=== PATIENT | female | born 1995 | race Caucasian/White ===

== ENCOUNTER 2019-06-28 00:25 | Emergency (ER) | payer BC, MEDICARE, MEDICAID ==
[2019-06-28] MEDS ORDERED: Ondansetron 4 MG Tab.DIS PO ONE (00:26)
[2019-06-28] MEDS ORDERED: Sodium Chloride 0.9% 1,000 ML IV ONE (00:59)
[2019-06-28 01:10] LABS: ANION GAP 12.6; CHLORIDE,CL 108 mmol/L (101-111); SODIUM,NA 135 mmol/L (135-145)
[2019-06-28] MEDS ORDERED: Ondansetron 4 MG/2 ML SDV IV ONE (01:50)
[2019-06-28] MEDS ORDERED: Acetaminophen 325 MG Tab PO ONE (02:25)
--- NOTE | 2019-06-28 02:27 | EDM.PDOC ---
ED HPI GENERAL MEDICAL PROBLEM - General Chief Complaint: Fever Stated Complaint: FEVER Time Seen by Provider: 06/28/19 00:50 Source of Information: Reports: Patient History Limitations: Reports: No Limitations - History of Present Illness INITIAL COMMENTS - FREE TEXT/NARRATIVE: C/O fever x 1.5 days, sore throat congestion. Hx renal transplant 2 months ago. Emesis 2300 x1. No urinary c/o. Tired. Generalized aches. Generalized Pain Score (Numeric/FACES): 4 - Related Data Allergies Allergy/AdvReac Type Severity Reaction Status Date / Time sulfamethoxazole Allergy Unknown Airway Verified 06/28/19 00:47 [From Bactrim] Tightness trimethoprim [From Bactrim] Allergy Unknown Airway Verified 06/28/19 00:47 Tightness Home Meds: Home Meds Acetaminophen [Tylenol] 325 mg PO Q6H PRN 06/28/19 [History] Albuterol Sulfate [Albuterol Sulfate Hfa] 2 puff INH DAILY PRN 06/28/19 [History ] Aspirin [Ecotrin EC] 81 mg PO DAILY 06/28/19 [History] Carvedilol [Coreg] 3.125 mg PO BID 06/28/19 [History] Diclofenac Sodium [Voltaren 1%] 1 applic TP QID 06/28/19 [History] Hydroxychloroquine Sulfate [Plaquenil] 200 mg PO DAILY 06/28/19 [History] Levothyroxine 150 mcg PO ACBREAKFAST 06/28/19 [History] Mycophenolate Sodium [Mycophenolic Acid] 180 mg PO DAILY 06/28/19 [History] Pantoprazole Sodium [Protonix] 40 mg PO DAILY 06/28/19 [History] Pentamidine Isethionate [Nebupent] 50 mg IH ASDIRECTED 06/28/19 [History] Sertraline [Zoloft] 100 mg PO DAILY 06/28/19 [History] Tacrolimus [Envarsus Xr] 1 mg PO DAILY 06/28/19 [History] Tacrolimus [Envarsus Xr] 4 mg PO DAILY 06/28/19 [History] prednisoLONE [Millipred] 5 mg PO DAILY 06/28/19 [History] valGANciclovir [Valcyte] 450 mg PO DAILY 06/28/19 [History] Past Medical History Other Genitourinary History: Right Renal Transplant March 2019 Endocrine/Metabolic History: Reports: Hypothyroidism Immunologic History: Reports: SLE Social & Family History - Family History Family Medical History: Noncontributory - Tobacco Use Smoking Status *Q: Never Smoker Second Hand Smoke Exposure: No - Caffeine Use Caffeine Use: Reports: Soda - Recreational Drug Use Recreational Drug Use: Yes Drug Use in Last 12 Months: Yes Recreational Drug Type: Reports: Marijuana/Hashish Recreational Drug Use Frequency: Not Used In Over 4 Months ED ROS ENT - Review of Systems Review Of Systems: Comprehensive ROS is negative, except as noted in HPI. ED EXAM, ENT - Physical Exam Exam: See Below Exam Limited By: No Limitations General Appearance: Alert, No Apparent Distress Eye Exam: Bilateral Eye: EOMI Ears: Normal External Exam, Normal TMs, TM Obscured by Cerumen Nose: Normal Inspection Mouth/Throat: Normal Inspection Head: Atraumatic, Normocephalic Neck: Normal Inspection Respiratory/Chest: No Respiratory Distress, Lungs Clear, Normal Breath Sounds, Other (rare dry cough) Cardiovascular: Normal Peripheral Pulses GI/Abdominal: Normal Bowel Sounds, Soft Extremities: Normal Inspection, Normal Range of Motion Neurological: Alert, Oriented, Normal Cognition Psychiatric: Normal Affect Skin: Warm, Dry, Intact, No Rash, Pallor Course - Vital Signs Last Recorded V/S: Last Vital Signs Temp 100.5 F 06/28/19 02:23 Pulse 95 06/28/19 01:59 Resp 18 06/28/19 01:59 BP 133/78 06/28/19 01:59 Pulse Ox 100 06/28/19 01:59 - Orders/Labs/Meds Orders: Active Orders 24 hr Category Date Time Status CULTURE BLOOD [BC] Stat Lab 06/28/19 00:40 Received CULTURE STREP A CONFIRMATION [RM] Stat Lab 06/28/19 00:37 Results STREP SCRN A RAPID W CULT CONF [RM] Stat Lab 06/28/19 00:37 Results Sodium Chloride 0.9% [Normal Saline] 1,000 ml Med 06/28/19 00:59 Active IV .BOLUS Medication Orders Sodium Chloride (Normal Saline) 1,000 mls @ 500 mls/hr IV .BOLUS ONE Stop: 06/28/19 02:58 Last Admin: 06/28/19 01:08 Dose: 500 mls/hr Labs: Laboratory Tests 12/02/19 12/02/19 12/02/19 Range/Units 00:37 00:37 00:40 WBC 3.1 L (5.0-10.0) 10^3/uL RBC 4.05 L (4.2-5.4) 10^6/uL Hgb 12.5 (12.0-16.0) g/dL Hct 37.6 (37.0-47.0) % MCV 92.8 (80-100) fL MCH 30.9 (27.0-34.0) pg MCHC 33.2 (33.0-35.0) g/dL Plt Count 211 (150-450) 10^3/uL Neut % (Auto) 90.5 H (42.2-75.2) % Lymph % (Auto) 2.6 L (20.5-50.1) % Dale % (Auto) 4.3 (2-8) % Eos % (Auto) 1.0 (1.0-3.0) % Baso % (Auto) 1.6 H (0.0-1.0) % Add Manual Diff Yes Neutrophils % (Manual) 36 L (42-75) % Band Neutrophils % 50 % Lymphocytes % (Manual) 5 L (20-50) % Atypical Lymphs % 0 % Monocytes % (Manual) 7 (2-8) % Eosinophils % (Manual) 2 (1-3) % Basophils % (Manual) 0 Sodium (135-145) mmol/L Potassium (3.6-5.0) mmol/L Chloride (101-111) mmol/L Carbon Dioxide (21.0-31.0) mmol/L Anion Gap BUN (7-18) mg/dL Creatinine (0.6-1.3) mg/dL Est Cr Clr Drug Dosing mL/min Estimated GFR (MDRD) BUN/Creatinine Ratio Glucose (74-105) mg/dL Lactic Acid (0.5-2.2) mmol/L Calcium (8.4-10.2) mg/dl Magnesium (1.8-2.5) mg/dL Total Bilirubin (0.2-1.0) mg/dL AST (10-42) IU/L ALT (10-60) IU/L Alkaline Phosphatase (42-121) IU/L Total Protein (6.7-8.2) g/dl Albumin (3.2-5.5) g/dl Globulin Albumin/Globulin Ratio Amylase (28-100) U/L Lipase (22-51) U/L Urine Color Yellow (YELLOW) Urine Appearance Clear (CLEAR) Urine pH 5.5 (5.0-9.0) Ur Specific [facility] 1.020 (1.005-1.030) Urine Protein Trace H (NEGATIVE) Urine Glucose (UA) Negative (NEGATIVE) Urine Ketones Negative (NEGATIVE) Urine Occult Blood Trace-lysed H (NEGATIVE) Urine Nitrite Negative (NEGATIVE) Urine Bilirubin Negative (NEGATIVE) Urine Urobilinogen 0.2 (0.2-1.0) mg/dL Ur Leukocyte Esterase Negative (NEGATIVE) Urine RBC 0-5 /HPF Urine WBC 0-5 (0-5/HPF) /HPF Ur Epithelial Cells Occasional (NOT SEEN) /HPF Urine Bacteria Few (0-FEW/HPF) /HPF Urine HCG, Qual Negative Urine Opiates Screen (NEGATIVE) Ur Oxycodone Screen (NEGATIVE) Urine Methadone Screen (NEGATIVE) Ur Barbiturates Screen (NEGATIVE) U Tricyclic Antidepress (NEGATIVE) Ur Phencyclidine Scrn (NEGATIVE) Ur Amphetamine Screen (NEGATIVE) U Methamphetamines Scrn (NEGATIVE) Urine MDMA Screen (NEGATIVE) U Benzodiazepines Scrn (NEGATIVE) Urine Cocaine Screen (NEGATIVE) U Marijuana (THC) Screen (NEGATIVE) 06/28/19 06/28/19 06/28/19 Range/Units 00:40 00:40 00:43 WBC (5.0-10.0) 10^3/uL RBC (4.2-5.4) 10^6/uL Hgb (12.0-16.0) g/dL Hct (37.0-47.0) % MCV (80-100) fL MCH (27.0-34.0) pg MCHC (33.0-35.0) g/dL Plt Count (150-450) 10^3/uL Neut % (Auto) (42.2-75.2) % Lymph % (Auto) (20.5-50.1) % Dale % (Auto) (2-8) % Eos % (Auto) (1.0-3.0) % Baso % (Auto) (0.0-1.0) % Add Manual Diff Neutrophils % (Manual) (42-75) % Band Neutrophils % % Lymphocytes % (Manual) (20-50) % Atypical Lymphs % % Monocytes % (Manual) (2-8) % Eosinophils % (Manual) (1-3) % Basophils % (Manual) Sodium 135 (135-145) mmol/L Potassium 4.6 (3.6-5.0) mmol/L Chloride 108 (101-111) mmol/L Carbon Dioxide 19.0 L (21.0-31.0) mmol/L Anion Gap 12.6 BUN 24 H (7-18) mg/dL Creatinine 1.1 (0.6-1.3) mg/dL Est Cr Clr Drug Dosing 80.92 mL/min Estimated GFR (MDRD) > 60 BUN/Creatinine Ratio 21.81 Glucose 111 H (74-105) mg/dL Lactic Acid 1.1 (0.5-2.2) mmol/L Calcium 9.2 (8.4-10.2) mg/dl Magnesium 1.6 L (1.8-2.5) mg/dL Total Bilirubin 1.5 H (0.2-1.0) mg/dL AST 26 (10-42) IU/L ALT 24 (10-60) IU/L Alkaline Phosphatase 57 (42-121) IU/L Total Protein 7.9 (6.7-8.2) g/dl Albumin 4.7 (3.2-5.5) g/dl Globulin 3.2 Albumin/Globulin Ratio 1.47 Amylase 66 (28-100) U/L Lipase 26 (22-51) U/L Urine Color (YELLOW) Urine Appearance (CLEAR) Urine pH (5.0-9.0) Ur Specific [facility] (1.005-1.030) Urine Protein (NEGATIVE) Urine Glucose (UA) (NEGATIVE) Urine Ketones (NEGATIVE) Urine Occult Blood (NEGATIVE) Urine Nitrite (NEGATIVE) Urine Bilirubin (NEGATIVE) Urine Urobilinogen (0.2-1.0) mg/dL Ur Leukocyte Esterase (NEGATIVE) Urine RBC /HPF Urine WBC (0-5/HPF) /HPF Ur Epithelial Cells (NOT SEEN) /HPF Urine Bacteria (0-FEW/HPF) /HPF Urine HCG, Qual Urine Opiates Screen Negative (NEGATIVE) Ur Oxycodone Screen Positive H (NEGATIVE) Urine Methadone Screen Negative (NEGATIVE) Ur Barbiturates Screen Negative (NEGATIVE) U Tricyclic Antidepress Negative (NEGATIVE) Ur Phencyclidine Scrn Negative (NEGATIVE) Ur Amphetamine Screen Negative (NEGATIVE) U Methamphetamines Scrn Negative (NEGATIVE) Urine MDMA Screen Negative (NEGATIVE) U Benzodiazepines Scrn Negative (NEGATIVE) Urine Cocaine Screen Negative (NEGATIVE) U Marijuana (THC) Screen Positive H (NEGATIVE) Meds: Medications Generic Name Dose Route Start Last Admin Trade Name Freq PRN Reason Stop Dose Admin Sodium Chloride 1,000 mls @ 500 mls/hr 06/28/19 00:59 06/28/19 01:08 Normal Saline IV 06/28/19 02:58 500 mls/hr .BOLUS ONE Administration Discontinued Medications Generic Name Dose Route Start Last Admin Trade Name Freq PRN Reason Stop Dose Admin Acetaminophen 650 mg 06/28/19 02:25 06/28/19 02:30 Tylenol PO 06/28/19 02:26 650 mg NOW ONE Administration Ondansetron HCl 4 mg 06/28/19 01:50 06/28/19 01:57 Zofran IV 06/28/19 01:51 4 mg ONETIME ONE Administration - Radiology Interpretation Free Text/Narrative:: CXR no acute process see report - Re-Assessments/Exams Free Text/Narrative Re-Assessment/Exam: 06/28/19 02:27 TC Renal transplant team Dr Pena. Patient hx, sx and labs reviewed. No additional recommendations. + Departure - Departure Time of Disposition: 02:24 Disposition: Home, Self-Care 01 Condition: Good Clinical Impression: Hx of kidney transplant, History of lupus URI (upper respiratory infection) Qualifiers: URI type: unspecified viral URI Qualified Code(s): J06.9 - Acute upper respiratory infection, unspecified - Discharge Information *PRESCRIPTION DRUG MONITORING PROGRAM REVIEWED*: No *COPY OF PRESCRIPTION DRUG MONITORING REPORT IN PATIENT RISHABH: No Instructions: Viral Respiratory Infection, [id number], Fever, Adult, Easy-to- Read Forms: ED Department Discharge Additional Instructions: increase fluids tylenol 500-650mg every 4 hours as needed for fever/ discomfort OTC robitussin per label cool mist vaporizer diet as tolerated recheck in clinic this week urgent follow up if symptoms worsen, uncontrolled fever persistent vomiting weakness or not tolerating oral liquids zofran 4mg ODT one every 4 hours as needed for nausea - My Orders Last 24 Hours: My Active Orders 06/28/19 00:37 CULTURE STREP A CONFIRMATION [RM] Stat STREP SCRN A RAPID W CULT CONF [RM] Stat 06/28/19 00:40 CULTURE BLOOD [BC] Stat 06/28/19 00:59 Sodium Chloride 0.9% [Normal Saline] 1,000 ml IV .BOLUS - Assessment/Plan Last 24 Hours: My Active Orders 06/28/19 00:37 CULTURE STREP A CONFIRMATION [RM] Stat STREP SCRN A RAPID W CULT CONF [RM] Stat 06/28/19 00:40 CULTURE BLOOD [BC] Stat 06/28/19 00:59 Sodium Chloride 0.9% [Normal Saline] 1,000 ml IV .BOLUS
[2019-06-28] MEDS ORDERED: Ondansetron 4 MG Tab.DIS ONE (02:33)
== END 2019-06-28 02:39 | disposition home or self-care (01) ==
LOC: DL.ED 00:25
DX: J06.9 Acute upper respiratory infection, unspecified (principal); E03.9 Hypothyroidism, unspecified; Z94.0 Kidney transplant status; Z87.39 Personal history of other diseases of the musculoskeletal system and connective tissue; Z88.8 Allergy status to other drugs, medicaments and biological substances; Z79.82 Long term (current) use of aspirin; Z79.890 Hormone replacement therapy
CPT/HCPCS: 36415; 71046; 80053; 80305; 81001; 81025; 82150; 83605; 83690; 83735; 85025; 87040; 87081; 87430; 87804; 96361; 96374; 99283; A9270; J2405; J7030